=== PATIENT | male | born 1965 | race Two or more races ===

== ENCOUNTER 2016-08-11 10:50 | Emergency (ER) | payer OTHER ==
[~2016-08-11 10:50] MED LIST: ATRAC-TAIN142 GM TOP; BACTRIM DS TABL1 TA1 PO; BENADRYL25 M1 PO; CENTANY30 G1 TOP; CLOBETASOL PROP TOP; DAKIN'S MODIF1000 ML TOP; DOK100 MG PO; E-MYCIN250 MG PO; H-CHLOR 12473 ML MC; HYDROCODONE/APA1 T16 PO; KEFLEX500 MG PO; KETOCONAZOLE15 GM TP; LOTRIMIN AF12 GM TP; NO MEDICATIONS; PRILOSEC40 MG PO; ROXICODONE5 M1 PO; SANTYL TOP; TEMOVATE EMOLLI30 GM TOP; TRIPLE ANTIBIO1 EACH TOP; ULTRAM PO; ZYVOX600 MG PO
== END 2016-08-11 11:00 | disposition home or self-care (01) ==
LOC: CFTX 10:50
DX: L30.9 Dermatitis, unspecified (principal); I10 Essential (primary) hypertension; F17.210 Nicotine dependence, cigarettes, uncomplicated
CPT/HCPCS: 99282

== ENCOUNTER 2016-10-06 17:35 | Emergency (ER) | payer OTHER | END 2016-10-06 17:56 | disposition home or self-care (01) | LOC: CFTX 17:35 | DX: L30.9 Dermatitis, unspecified (principal); I10 Essential (primary) hypertension; F17.210 Nicotine dependence, cigarettes, uncomplicated | CPT/HCPCS: 99282 ==